=== PATIENT | female | born 1990 | race Caucasian/White ===

== ENCOUNTER 2018-07-04 06:36 | Inpatient (IN) ==
--- NOTE | 2018-07-03 12:17 | MH ---
cc: Walter Carr MD DATE OF ADMISSION: 07/04/2018 CHIEF COMPLAINT: Scheduled repeat . HISTORY OF PRESENT ILLNESS: This patient is a 28-year-old, G2, P1-0-0-1, who will be at 39 weeks and 0 days by sure LMP, consistent with a 13-week ultrasound with estimated due date of 07/11/2018, admitted for a scheduled repeat . Any changes or additions to the history and physical will be added as a separate note at the time of her presentation. 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 PAST MEDICAL HISTORY: 1. Anxiety. 2. Migraines. 3. History of AVM of the left lower extremity, status post repair. MEDICATIONS: 1. vitamins. 2. Triamcinolone cream for PUPPs. ALLERGIES: NO KNOWN DRUG ALLERGIES. SOCIAL HISTORY: Denies tobacco, alcohol, or drug use. FAMILY HISTORY: No pertinent positive family history. OBSTETRICAL HISTORY: Madi, 2007, 40 weeks primary secondary to malpresentation. Baby weighed around 6 pounds. GYNECOLOGICAL HISTORY: Denies history of abnormal Paps or STDs. LMP 10/04/2017. PAST SURGICAL HISTORY: AVM repair of left lower extremity, , tongue surgery, and eye surgery. PHYSICAL EXAMINATION: VITAL SIGNS: Based on encounter from 06/24/2018, blood pressure 120/70, weight 195 pounds. GENERAL: Alert and oriented x 3, resting comfortably in bed, in no acute distress. PULMONARY: Lungs are clear to auscultation bilaterally. No wheezes, crackles, or rhonchi. CARDIOVASCULAR: Regular rate and rhythm. No murmurs, rubs, or gallops. ABDOMEN: Soft, gravid, nontender, nondistended. GENITOURINARY: Deferred. EXTREMITIES: No clubbing, cyanosis, or edema DIAGNOSTIC DATA: labs, see ACOG. ASSESSMENT AND PLAN: This patient is a 28-year-old G2, P1-0-0-1, at 39 weeks and 0 days for a scheduled repeat . 1. Intrauterine . Will be placed on monitoring upon presentation. - estimated weight on 06/24/2018, is 4179 grams, in the 99th percentile, placenta anterior cephalic position, male fetus named Rian. 2. History of section, desiring repeat. Discussed risks, benefits, and expected outcomes of . The patient does not desires sterilization. 3. Migraines and anxiety, controlled without medications. 4. Cystic fibrosis carrier. The father of baby is not a carrier of the same mutation. 5. History of arteriovenous malformation of the left lower extremity, status post repair. Will not need any specific anticoagulation other than what is routine after a . 6. Rh negative status RhoGAM per protocol . MD CRISTIAN Hdez/abhinav , 10:03 AM , 10:13 AM MTDD
[2018-07-04] MEDS ORDERED: ceFAZolin 2 GM Premix Inj 2 GM/50 ML PIGGYBACK IV.SIG PRN (07:07)
[2018-07-04] MEDS ORDERED: Citric Acid/Sodium Citrate Liq 30 ML UDC PO SCH (07:15)
--- NOTE | 2018-07-04 07:18 | P.OP ---
Surgeon: Walter Carr MD Operation and Findings: Preoperative diagnosis: 1. Intrauterine at 39 weeks and 0 day 2. History of section desiring repeat 3. Anxiety 4. Cystic fibrosis carrier 5. Rh negative Postop diagnosis 1. Same as above status post repeat Procedure 1. Repeat low transverse section Surgeon Dr. Walter Carr Mmi Teacher: [facility] labor and delivery scrub staff Findings: 1. Viable male at 0856, Apgars 8 and 9. Sterling weight 3940 g 2. Intact placenta with three-vessel cord at 0857 3. Dense subcutaneous scar tissue. Thin lower uterine segment. Bladder densely adhered to the lower uterine segment. No other intra-abdominal adhesions. Normal uterus, bilateral fallopian tubes and ovaries. Anesthesia: spinal Specimen: placenta to disposal Estimated blood loss: 700 cc Fluid replacement: 2 L lactated Ringer's and Pitocin Urine output: [address] [place] DVT prophylaxis: Sequential compression devices throughout the case Antibiotics: 2 g Ancef preoperatively Counts: correct x2 Time out done: yes Disposition: Stable to PACU then Indications: 28-year-old, G2, P1001 who presented for scheduled repeat , please see H&P and consent for further details. Description of procedure: The patient was taken to the operating room and after spinal anesthesia was performed she was positioned and supine position with arms out in a left lateral tilt, the abdomen was prepped and draped in sterile fashion, a Pfannenstiel incision was made and carried down sharply to the fascia through her previous scar, the fascia was nicked on either side of the midline, this was extended bilaterally, the fascia was elevated superiorly and inferiorly and the rectus muscles were sharply dissected off the overlying fascia, the peritoneum was entered sharply and retracted laterally. A bladder flap was developed with Metzenbaum scissors at the lower uterine segment, the hysterotomy was made in the lower uterine segment with a scalpel in a curvilinear fashion, it was extended cephalad-caudad manner, I inserted my hand into the hysterotomy and the head was elevated to the hysterotomy and with fundal pressure was delivered. With gentle downward and upward guidance the anterior and posterior shoulder was delivered, followed by the torso and lower extremities with ease, the had spontaneous cry the cord was clamped and cut, the was handed off to nursing staff after delayed cord clamping was allowed. Pitocin was bolused and with uterine massage and cord traction the placenta was delivered, uterus was cleared of clot and debris, the uterus was exteriorized and the hysterotomy was closed with 1 layer with 0 locking Vicryl, a portion of the left serosa of the bladder was likely incorporated in this closure due to the dense.The abdomen and hysterotomy were irrigated, inspected, and found to be hemostatic. The fascia was closed from left to right with 0 running delayed absorbable suture. The subcutaneous tissue was irrigated, inspected, hemostasis was appreciated. The space and the subcutaneous tissue was closed with running 2-0 Monocryl. The skin was closed with 3-0 Monocryl in a subcuticular fashion and then a dressing was applied and the patient tolerated procedure well was transferred to PACU.
--- NOTE | 2018-07-04 07:30 | P.OBGPN ---
Queried PDMP and reviewed report
[2018-07-04 07:47] LABS: Baso # (Auto) 0.1 th/mm3 (0.0-0.2); Baso % (Auto) 0.5 % (0.0-2.0); Eos # (Auto) 0.2 th/mm3 (0.0-0.4); Eos % (Auto) 1.2 % (0.0-4.0); Hematocrit 35.5 % (35.0-46.0); Hemoglobin 11.9 gm/dL (11.6-15.3); Lymph # (Auto) 2.1 th/mm3 (1.0-4.8); Lymph % (Auto) 15.5 % (9.0-44.0); Mean Corpuscular HGB Conc 33.4 % (32.0-36.0); Mean Corpuscular Hemoglobin 29.5 pg (27.0-34.0); Mean Corpuscular Volume 88.1 fL (80.0-100.0); Mean Platelet Volume 9.6 fL (7.0-11.0); Mono # (Auto) 0.8 th/mm3 (0.0-0.9); Mono % (Auto) 6.2 % (0.0-8.0); Neut # (Auto) 10.5 th/mm3 (1.8-7.7); Neut % (Auto) 76.6 % (16.0-70.0); Platelet Count 200 th/mm3 (150-450); Red Blood Count 4.02 mil/mm3 (4.00-5.30); Red Cell Distribution Width 14.5 % (11.6-17.2); White Blood Count 13.6 th/mm3 (4.0-11.0)
[2018-07-04] MEDS ORDERED: Morphine Sulfate PF Inj 5 MG/10 ML Ampul ONE (08:18)
[2018-07-04] MEDS ORDERED: fentaNYL Citrate Inj 100 MCG/2 ML Ampul ONE (08:18)
[2018-07-04 08:26] LABS: Amorphous Sediment,Urine Occasional /hpf; Bacteria,Urine Occasional /hpf; Bilirubin,Urine Negative (Negative); Clarity,Urine Cloudy (Clear); Color,Urine Yellow (Yellw/Straw); Glucose,Urine (UA) Negative (Negative); Leukocyte Esterase,Urine Negative (Negative); Mucus,Urine Few /lpf (Occasional); Nitrite,Urine Negative (Negative); Specific Gravity,Urine 1.013 (1.002-1.035); Squamous Epithelial Cell,Urine 20 /hpf (0-5)
[2018-07-04 08:27] LABS: Amphetamine Urine With Conf Neg (Neg); Benzodiazepine Urine With Conf Neg (Neg)
[2018-07-04] MEDS ORDERED: Oxytocin 30 Units/500ml Premix 30 UNITS/500 ML BAG IV.SIG ONE (09:34)
[2018-07-04] MEDS ORDERED: Zolpidem Tartrate 5 MG Tablet PO PRN (09:34)
[2018-07-04] MEDS ORDERED: Acetaminophen 325 MG Tablet PO PRN (09:34)
[2018-07-04] MEDS ORDERED: Morphine Inj 4 MG/ML Vial IV.PUSH PRN (10:00)
[2018-07-04] MEDS ORDERED: Ketorolac Inj 30 MG/ML (IVP) Vial IV.PUSH ONE (10:15)
[2018-07-04] MEDS ORDERED: Ketorolac Inj 30 MG/ML (IVP) Vial ONE (10:18)
[2018-07-04] MEDS ORDERED: Naloxone Inj 0.4 MG/ML Vial IV.PUSH PRN (10:36)
[2018-07-04] MEDS ORDERED: [UNRECOGNIZED DRUG - OTHER] I-DERMAL ONE (10:45)
[2018-07-04] MEDS ORDERED: Oxytocin 30 Units/500ml Premix 30 UNITS/500 ML BAG ONE (10:49)
[2018-07-04] MEDS ORDERED: Influenza (Quadrivalent) Vaccine 0.5 ML Syringe IM ONE (11:00)
[2018-07-04] MEDS ORDERED: Oxytocin 30 Units/500ml Premix 30 UNITS/500 ML BAG IV.SIG PRN (14:34)
[2018-07-04] MEDS ORDERED: Rho Immune Globulin Inj 1,500 UNIT/1.3 ML Vial IM ONE (16:00)
[2018-07-04] MEDS: Ketorolac Inj 30 MG/ML (IVP) Vial IV.PUSH SCH ×2 (17:30→22:49)
[2018-07-04 19:29] VITALS: O2SAT 96
[2018-07-05] MEDS ORDERED: Diphtheria/Tetanus/Pertussis Vaccine Inj 0.5 ML Syringe IM ONE ×2 (03:00→16:00)
[2018-07-05] MEDS: Ketorolac Inj 30 MG/ML (IVP) Vial IV.PUSH SCH ×2 (03:14→20:22)
[2018-07-05 07:18] LABS: Baso % (Auto) 0.3 % (0.0-2.0); Eos # (Auto) 0.1 th/mm3 (0.0-0.4); Eos % (Auto) 0.6 % (0.0-4.0); Hematocrit 24.7 % (35.0-46.0); Hemoglobin 8.3 gm/dL (11.6-15.3); Lymph # (Auto) 2.5 th/mm3 (1.0-4.8); Lymph % (Auto) 17.6 % (9.0-44.0); Mean Corpuscular HGB Conc 33.8 % (32.0-36.0); Mean Corpuscular Hemoglobin 29.6 pg (27.0-34.0); Mean Corpuscular Volume 87.5 fL (80.0-100.0); Mean Platelet Volume 9.6 fL (7.0-11.0); Mono % (Auto) 7.2 % (0.0-8.0); Neut # (Auto) 10.4 th/mm3 (1.8-7.7); Neut % (Auto) 74.3 % (16.0-70.0); Platelet Count 179 th/mm3 (150-450); Red Blood Count 2.82 mil/mm3 (4.00-5.30); Red Cell Distribution Width 14.3 % (11.6-17.2)
--- NOTE | 2018-07-05 08:00 | P.PNOB ---
Subjective Post op day: 1 Interval history: doing well, tolerating po, voiding, wants circ done today b/c last baby bled after it was done in office Objective Vital Signs/I&O: Vital Signs 07/04/18 09:45 07/04/18 10:00 07/04/18 10:15 Temperature 97.8 F Pulse Rate 99 H 76 73 Respiratory Rate 18 16 18 Blood Pressure 118/68 119/68 127/60 Pulse Oximetry 07/04/18 10:30 07/04/18 10:41 07/04/18 10:45 Temperature Pulse Rate 76 76 Respiratory Rate 16 18 Blood Pressure 120/78 128/66 Pulse Oximetry 07/04/18 11:08 07/04/18 19:28 07/04/18 20:00 Temperature 97.6 F 98.9 F 98.9 F Pulse Rate 92 H 83 83 Respiratory Rate 20 16 16 Blood Pressure 127/84 122/70 122/70 Pulse Oximetry 96 07/05/18 05:34 Temperature 98.4 F Pulse Rate 75 Respiratory Rate 18 Blood Pressure 121/65 Pulse Oximetry Intake & Output 07/04/18 07/05/18 07/05/18 18:59 06:59 18:59 Intake Total 1000 / 1000 Balance 1000 / 1000 Weight 83.915 kg Intake: IV 1000 / 1000 LR 1000 mL Inj 1,000 ML @ 2000 1000 / 1000 mls/hr IV.SIG .Q30M ONE Rx#: [id number] Other: Weight On Admission 83.915 kg Result Diagrams: 07/05/18 06:57 Objective Remarks: GENERAL: Well-nourished, well-developed patient. CARDIOVASCULAR: Regular rate and rhythm without murmurs, gallops, or rubs. RESPIRATORY: Breath sounds equal bilaterally. No accessory muscle use. ABDOMEN/GI: Abdomen soft, non-tender, bowel sounds present. Incision: dressing Clean, dry and intact. Fundus: Firm, non-tender at umbilicus. GENITOURINARY: Light to moderate bleeding. EXTREMITIES: No cyanosis or edema, non-tender, without signs of DVT. Medications and IVs: Active Medications Acetaminophen (Tylenol) 650 mg PO Q6H PRN PRN Reason: PAIN SCALE 1 TO 2 Diphenhydramine HCl (Benadryl) 50 mg PO Q6H PRN PRN Reason: MILD TO MODERATE ITCHING Stop: 07/05/18 10:35 Diphenhydramine HCl (Benadryl Inj) 25 mg IV.PUSH Q6H PRN PRN Reason: MILD TO MODERATE ITCHING Stop: 07/05/18 10:35 Lactated Ringer's (Lr 1000 Ml Inj) 1,000 mls @ 100 mls/hr IV.CONT .Q10H ABDIAS Stop: 07/05/18 10:33 Last Admin: 07/05/18 02:42 Dose: 100 mls/hr Oxytocin (Pitocin 30 Units/Ns 500 Ml Premix) 30 units in 500 mls @ 100 mls/hr IV.SIG UNSCH PRN PRN Reason: Heavy bleeding Ibuprofen (Motrin) 800 mg PO Q8H PRN PRN Reason: cramping Ketorolac Tromethamine (Toradol Inj) 15 mg IV.PUSH Q6H ABDIAS Stop: 07/05/18 16:14 Last Admin: 07/05/18 03:14 Dose: 15 mg Measles/Mumps/Rubella Vaccine Live (M-M-R Ii Vaccine Inj) 0.5 ml SQ .ONCE ONE Stop: 07/05/18 16:01 Miscellaneous Information ([facility] 1 each OTHER UNSCH PRN PRN Reason: SEE LABEL COMMENTS Stop: 07/05/18 10:35 Miscellaneous Information ([facility]) 1 each OTHER UNSCH PRN PRN Reason: SEE LABEL COMMENTS Stop: 07/05/18 10:35 Morphine Sulfate (Morphine Inj) 5 mg IV.PUSH Q4H PRN PRN Reason: BREAKTHROUGH PAIN Naloxone HCl (Narcan Inj) 0.4 mg IV.PUSH UNSCH PRN PRN Reason: SEE LABEL COMMENTS Stop: 07/05/18 10:35 Ondansetron HCl (Zofran Odt) 4 mg PO Q4H PRN PRN Reason: NAUSEA Ondansetron HCl (Zofran Inj) 4 mg IV.PUSH Q6H PRN PRN Reason: NAUSEA OR VOMITING Last Admin: 07/04/18 17:28 Dose: 4 mg Oxycodone/Acetaminophen (Percocet 5/325 Mg) 1 tab PO Q4H PRN PRN Reason: PAIN SCALE 3 TO 5 Last Admin: 07/04/18 18:51 Dose: 1 tab Oxycodone/Acetaminophen (Percocet 5/325 Mg) 2 tab PO Q4H PRN PRN Reason: PAIN SCALE 6 TO 10 Last Admin: 07/05/18 07:53 Dose: 2 tab Sodium Chloride (Ns Flush) 2 ml IV.FLUSH BID ABDIAS Last Admin: 07/04/18 21:22 Dose: Not Given Sodium Chloride (Ns Flush) 2 ml IV.FLUSH PRN PRN PRN Reason: FLUSH AFTER USING IV ACCESS Zolpidem Tartrate (Ambien) 5 mg PO HS PRN PRN Reason: INSOMNIA Assessment and Plan - Diagnosis (1) delivery delivered Code(s): O82 - Encounter for delivery without indication Status: Acute (2) Previous section complicating Code(s): O34.219 - Maternal care for unspecified type scar from previous delivery Status: Acute - Plan routine post op care, OOB , tolerating po, analgesia prn Discharge Planning: day 2-3 PP - Attending Attestation pt seen by me
[2018-07-05] MEDS ORDERED: Measles/Mumps/Rubella Vaccine Inj 0.5 ML Vial SQ ONE (16:00)
--- NOTE | 2018-07-06 09:39 | P.PNOB ---
Subjective Post op day: 2 Interval history: pt wants to go home today, circ done yesterday Objective Vital Signs/I&O: Vital Signs 07/05/18 20:00 07/06/18 08:00 Temperature 98.1 F 97.5 F L Pulse Rate 80 76 Respiratory Rate 18 20 Blood Pressure 111/60 108/65 Result Diagrams: 07/05/18 06:57 Objective Remarks: GENERAL: Well-nourished, well-developed patient. CARDIOVASCULAR: Regular rate and rhythm without murmurs, gallops, or rubs. RESPIRATORY: Breath sounds equal bilaterally. No accessory muscle use. ABDOMEN/GI: Abdomen soft, non-tender, bowel sounds present. Incision: Clean, dry and intact. Fundus: Firm, non-tender at umbilicus. GENITOURINARY: Light to moderate bleeding. EXTREMITIES: No cyanosis or edema, non-tender, without signs of DVT. Medications and IVs: Active Medications Acetaminophen (Tylenol) 650 mg PO Q6H PRN PRN Reason: PAIN SCALE 1 TO 2 Oxytocin (Pitocin 30 Units/Ns 500 Ml Premix) 30 units in 500 mls @ 100 mls/hr IV.SIG UNSCH PRN PRN Reason: Heavy bleeding Ibuprofen (Motrin) 800 mg PO Q8H PRN PRN Reason: cramping Last Admin: 07/06/18 04:57 Dose: 800 mg Morphine Sulfate (Morphine Inj) 5 mg IV.PUSH Q4H PRN PRN Reason: BREAKTHROUGH PAIN Ondansetron HCl (Zofran Odt) 4 mg PO Q4H PRN PRN Reason: NAUSEA Ondansetron HCl (Zofran Inj) 4 mg IV.PUSH Q6H PRN PRN Reason: NAUSEA OR VOMITING Last Admin: 07/04/18 17:28 Dose: 4 mg Oxycodone/Acetaminophen (Percocet 5/325 Mg) 1 tab PO Q4H PRN PRN Reason: PAIN SCALE 3 TO 5 Last Admin: 07/04/18 18:51 Dose: 1 tab Oxycodone/Acetaminophen (Percocet 5/325 Mg) 2 tab PO Q4H PRN PRN Reason: PAIN SCALE 6 TO 10 Last Admin: 07/06/18 04:51 Dose: 2 tab Sodium Chloride (Ns Flush) 2 ml IV.FLUSH BID ABDIAS Last Admin: 07/05/18 20:22 Dose: Not Given Sodium Chloride (Ns Flush) 2 ml IV.FLUSH PRN PRN PRN Reason: FLUSH AFTER USING IV ACCESS Zolpidem Tartrate (Ambien) 5 mg PO HS PRN PRN Reason: INSOMNIA Assessment and Plan - Diagnosis (1) delivery delivered Code(s): O82 - Encounter for delivery without indication Status: Acute (2) Previous section complicating Code(s): O34.219 - Maternal care for unspecified type scar from previous delivery Status: Acute - Plan routine post op care, OOB , tolerating po, analgesia prn d/c home, rto 1-2 wks Discharge Planning: day 2-3 PP - Attending Attestation pt seen by me
[2018-07-06 10:04] VITALS: BP 122/73; PULSE 83; RESP 16; TEMP 98.2
== END 2018-07-06 11:08 | disposition home or self-care (01) ==
LOC: H2E 06:36 → H1EA 10:55
PROVIDERS: ADMIT Obstetrics & Gynecology; ATTEND Obstetrics & Gynecology